=== PATIENT | female | born 2000 | race Caucasian/White ===

== ENCOUNTER → 2018-09-18 | Outpatient (REF) | payer OTHER ==
[2018-09-18 13:25] LABS: PLATELET COUNT, AUTOMATED 325 K/uL (150-450)
== END ==
PROVIDERS: ATTEND Family Medicine
DX: R42 Dizziness and giddiness (principal); R53.83 Other fatigue
CPT/HCPCS: 82040; 82247; 82310; 82374; 82435; 82565; 82947; 84075; 84132; 84155; 84295; 84443; 84450; 84460; 84520; 85025; 86140

== ENCOUNTER 2019-05-31 17:42 | Observation (INO) | payer OTHER ==
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
[~2019-05-31 17:42] MED LIST changes: +DIPHTH/TETANUS/ACEL. PERTUSSIS IM ONE; -DOCU-202 PO; -MEDR150D IM; +NS(*) 0.9% 1000 ML BAG 1,000 ML IV ONE; -TRAM-420 PO
[2019-05-31] MEDS ORDERED: IOPAMIDOL 76% 100 ML INFUS BTL 100 ML ONE (17:43)
[2019-05-31] MEDS ORDERED: MEDR150D IM (17:52)
[2019-05-31 18:20] LABS: PLATELET COUNT, AUTOMATED 191 K/uL (150-450)
[2019-05-31 18:28] LABS: INR 1.07
[2019-05-31] MEDS ORDERED: HYDROMORPHONE HCL 1 MG/ML SYRINGE IVP ONE (18:55)
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
[2019-05-31] MEDS ORDERED: LR(*) 1000 ML BAG 1,000 ML IV PRN (21:55)
[2019-05-31] MEDS ORDERED: ONDANSETRON 4 MG/2 ML VIAL IVP PRN (21:55)
[2019-05-31] MEDS: HYDROmorphone HCL 2 MG/ML SDV IVP PRN (22:33)
[2019-06-01] MEDS: HYDROmorphone HCL 2 MG/ML SDV IVP PRN ×3 (02:34→08:05)
[2019-06-01 04:03] VITALS: BP 102/54
[2019-06-01 06:57] VITALS: BP 94/54
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
[2019-06-01] MEDS ORDERED: IBUPROFEN 200 MG TAB PO PRN (08:50)
[2019-06-01] MEDS ORDERED: ACETAMINOPHEN 325 MG TAB PO PRN (08:50)
[2019-06-01] MEDS ORDERED: NALOXONE HCL 0.4 MG/ML VIAL IVP PRN (08:50)
[2019-06-01] MEDS ORDERED: MAGNESIUM HYDROXIDE* 30ML UDCP PO PRN (08:50)
[2019-06-01] MEDS ORDERED: ONDANSETRON 4 MG/2 ML VIAL IVP PRN (08:50)
[2019-06-01] MEDS ORDERED: FLUSH 10 ML SYR IVP PRN (08:50)
[2019-06-01] MEDS ORDERED: traMADol 50 MG TAB PO PRN (08:50)
[2019-06-01] MEDS ORDERED: FAMOTIDINE 20 MG TAB PO SCH (09:00)
[2019-06-01] MEDS ORDERED: DOCUSATE SODIUM 100 MG CAP PO SCH (09:00)
[2019-06-01] MEDS ORDERED: POLYETHYLENE GLYCOL 17 GM PKT PO SCH (09:00)
[2019-06-01] MEDS ORDERED: ENOXAPARIN 40 MG/0.4ML SYR SC SCH (10:05)
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
--- NOTE | 2019-06-01 10:42 | NUR ---
Physical Therapy Impression PT eval complete. Pt fitted and educated about purpose of TLSO per MD recommendations for "as needed" and "for comfort". Also thoroughly explained purpose of TLSO and how level of injury is right in between needing a TLSO vs. a CTLO (also as discussed with MD). Pt and Pt's mother are opting for TLSO at this time and understand how to pursue a CTLO if needed for better pain management. Educated Pt and mother on appropriate fit of TLSO and how to don and doff brace with demonstration and returned verbal understanding. Pt educated in log roll technique for supine<>sit transfer with returned demonstration. Pt demonstrated independent with functional mobility and reported pain relief with ambulation. Also recommended Pt use a rolling backpack for school rather than a traditional backpack in order to decrease pain and improved healing. Pt verbalized understanding. Pt and mother educated on importance of deep breathing with returned verbal understanding. Pt safe to DC when medically appropriate. Physical Therapy Goals Patient's Goals
[2019-06-01] MEDS ORDERED: DOCU-202 PO (16:01)
[2019-06-01] MEDS ORDERED: TRAM-420 PO (16:01)
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
== END 2019-06-01 16:00 | disposition home or self-care (01) ==
LOC: ER 17:47 → MED 20:07 → INTOOBSV 20:07
PROVIDERS: ADMIT Surgery; ATTEND Surgery
DX: S22.030A Wedge compression fracture of third thoracic vertebra, initial encounter for closed fracture (principal); V86.99XA Unspecified occupant of other special all-terrain or other off-road motor vehicle injured in nontraffic accident, initial encounter; R51 Headache; H53.8 Other visual disturbances; Z23 Encounter for immunization
CPT/HCPCS: 70450; 71046; 71260; 72125; 74177; 80320; 83605; 83690; 84703; 85025; 85610; 85730; 90471; 90715; 96372; 96374; 97161; 97530; 99291; 99292; G0378; J1170; J1650; J2405; J7030; J7120; Q9967; 82040; 82247; 82310; 82374; 82435; 82565; 82947; 84075; 84132; 84155; 84295; 84450; 84460; 84520

== ENCOUNTER → 2019-05-31 | Outpatient (CLI) | payer OTHER ==
[~2019-05-31] MED LIST: DOCU-202 PO; MEDR150D IM; TRAM-420 PO
== END ==
LOC: AMB 16:10
PROVIDERS: ATTEND Nurse Practitioner
DX: M54.5 Low back pain (principal); V86.69XA Passenger of other special all-terrain or other off-road motor vehicle injured in nontraffic accident, initial encounter
CPT/HCPCS: A0425; A0433